=== PATIENT | male | born 2000 | race Caucasian/White ===

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

== ENCOUNTER 2020-01-23 11:30 | Outpatient (NON) | payer OTHER, SELFPAY ==
[2020-01-25 17:04] LABS: SARS-CoV-2 RNA PCR Negative
== END 2020-01-23 11:31 ==
PROVIDERS: PCP Family Medicine; Visit Provider Family Medicine
DX: J02.9 Acute pharyngitis, unspecified (principal); Z20.828 Contact with and (suspected) exposure to other viral communicable diseases
CPT/HCPCS: 87635; C9803; U0003

== ENCOUNTER → 2020-07-30 14:57 | Outpatient (CLI) | payer OTHER, SELFPAY ==
--- NOTE | ~2020-07-30 | XR_ITS ---
XR thoracic spine 3V DATE: 07/30/2020 15:42 INDICATION: Thoracic back pain TECHNIQUE: AP, lateral, swimmer views COMPARISON: None FINDINGS: No fracture or dislocation or bone destruction. The thoracic pedicles are intact. No parasp inal soft tissue thickening. IMPRESSION: Negative Reviewed, dictated and finalized at location A. IMPRESSION: Negative
--- NOTE | ~2020-07-30 | XR_ITS ---
XR lumbar spine 2-3V DATE: 07/30/2020 15:42 INDICATION: Low back pain TECHNIQUE: AP, lateral, coned lateral lumbosacral views COMPARISON: None FINDINGS: No fracture or dislocation or bone destruction. The included lower thoracic and lumbar pedi cles are intact. The lumbar and lumbosacral interspaces are well preserved. The sacroiliac joints are normal. IMPRESSION: Negative Reviewed, dictated and finalized at location A. IMPRESSION: Negative
--- NOTE | ~2020-07-30 | XR_ITS ---
EXAMINATION: XR knee LT 3V DATE: 07/30/2020 15:42 INDICATION: Left knee pain. TECHNIQUE: 3 views of left knee were obtained. COMPARISON: None. FINDINGS: Bone alignment is normal. No fracture. Joint spaces are well maintained. There is no knee j oint effusion. IMPRESSION: 1. Normal left knee. Reviewed, dictated and finalized at location A. IMPRESSION: 1. Normal left knee.
== END ==
PROVIDERS: PCP Family Medicine; Visit Provider Family Medicine
DX: M54.6 Pain in thoracic spine (principal); M54.5 Low back pain; M25.562 Pain in left knee
CPT/HCPCS: 72072; 72100; 73562

== ENCOUNTER 2023-01-27 13:51 | Emergency (ER) | payer OTHER, SELFPAY ==
--- NOTE | ~2023-01-27 | CT_ITS ---
EXAMINATION: CT abdomen pelvis w con DATE: 01/27/2023 17:34 INDICATION: Right groin pain TECHNIQUE: Computed tomography (CT) of the abdomen and pelvis was performed with 100 mL Omnipaque-350 intravenous contrast. Automated exposure control and iterative reconstruction technique were employe d. The dose-length product was 280.85 mGy-cm. COMPARISON: None FINDINGS: Lung bases are clear. Heart size is normal. No pericardial or pleural effusion. Liver, gallbladder, s pleen, pancreas, bilateral adrenal glands and kidneys are normal. Bowels including the appendix are n ormal. Bladder is normal. No evident urolithiasis in the kidneys or along the course of the lateral u reters. No free intraperitoneal gas or fluid. No pathologically enlarged abdominal or pelvic lymphade nopathy. Mild lumbar levocurvature. IMPRESSION: 1. No acute intra-abdominal/pelvic process. Normal appendix. Reviewed, dictated and finalized at location A. OMATIC INTERPRETER
[2023-01-27 14:03] VITALS: BP 132/78; PULSE 125; RESP 16; TEMP 37.1; O2SAT 100
[2023-01-27 16:05] LABS: Basophils Percent Auto 0.2 % (0.2-1.2); Eosinophils Percent Auto 0.3 % (0-4.4); Hematocrit 46.3 % (42.0-52.0); Hemoglobin 16.1 g/dL (14.0-18.0); Immature Granulocyte Absolute 0.05 K/mm3 (0.00-0.031); Immature Granulocyte Percent A 0.4 % (0-0.5); Lymphocytes Absolute Auto 0.95 K/mm3 (0.9-3.2); Lymphocytes Percent Auto 7.8 % (18.3-44.2); Mean Corpuscular HGB Conc 34.8 g/dl (32-36); Mean Corpuscular Hemoglobin 30.4 pg (26-34); Mean Corpuscular Volume 87.4 fl (80-100); Mean Platelet Volume 9.9 fl (7.4-10.4); Monocytes Absolute Auto 0.6 K/mm3 (0.1-0.6); Monocytes Percent Auto 4.7 % (2.6-8.5); Neutrophils Absolute Auto 10.6 K/mm3 (1.3-6.7); Neutrophils Percent Auto 86.6 % (45.5-73.1); Platelet Count Result 219 k/mm3 (150-375); Red Cell Distribution Width 11.9 % (11.5-14.5); White Blood Count 12.2 K/mm3 (4.5-10.0)
[2023-01-27 16:09] LABS: Appearance Urine Clear (Clear); Bacteria Urine None Seen /hpf; Bilirubin Urine Negative (Negative); Color Urine Dark Yellow (Yellow); Glucose Urine UA Negative (Negative); Ketones Urine Trace mg/dL (Negative); Leukocyte Esterase Ur Negative LEU/UL (Negative); Nitrate Urine Negative (Negative); Non Pathogenic Casts 0-2; Protein Urine Trace mg/dL (Negative); Specific Grav Ur 1.025 (1.001-1.035); Squamous Epithelial Cell Urine None seen /hpf (Few); WBC Urine 0-5 /hpf; pH Urine 6.5 (5.0-9.0)
[2023-01-27 16:11] LABS: Add Urine Microscopic? YES
[2023-01-27 16:16] LABS: Alanine Aminotransferase 16 U/L (6-50); Alkaline Phosphatase 50 U/L (38-126); Anion Gap 15 mmol/L (8-16); Aspartate Amino Transferase 22 U/L (17-59); Bilirubin,Total 3.3 mg/dL (0.2-1.3); Blood Urea Nitrogen 10 mg/dL (9-20); Calcium 9.7 mg/dL (8.4-10.2); Carbon Dioxide 20 mmol/L (22-30); Chloride 104 mmol/L (98-107); Estimated CRCL calculation 101 ml/min; Estimated Glomerular Filt Rate > 60; Glucose 112 mg/dL (65-110); Lipase 64 U/L (23-300); Potassium 3.4 mmol/L (3.4-5.0); Sodium 139 mmol/L (137-145)
[2023-01-27 16:19] VITALS: BP 135/82; PULSE 91; O2SAT 100
--- NOTE | 2023-01-27 16:47 | ECG_ITS ---
Measurements Intervals [place] Rate: 70 P: 39 CT: 123 QRS: 92 QRSD: 112 T: 71 QT: 377 QTc: 408 Interpretive Statements SINUS RHYTHM WITH SINUS ARRHYTHMIA RIGHT AXIS DEVIATION INTRAVENTRICULAR CONDUCTION DELAY BORDERLINE ECG NO PREVIOUS ECG AVAILABLE FOR COMPARISON Electronically Signed On 01-27-2023 19:59:34 AUTOMATIC CHIEF by Waldemar Block D.O.
[2023-01-27] MEDS: ONDANSETRON INJ 4 MG/2 ML VIAL IV PUSH (17:02)
[2023-01-27] MEDS: SODIUM CHLORIDE 0.9% IV 1,000 ML 999 ML IV CONT ×2 (17:02)
[2023-01-27 17:09] LABS: INR 1.1; Prothrombin Time 14.4 Seconds (11.1-14.7)
[2023-01-27 17:10] LABS: Partial Thromboplastin Time 28.7 SECONDS (22.3-36.8)
[2023-01-27 17:13] LABS: D Dimer < 0.27 ug/mL (<0.48)
--- NOTE | 2023-01-27 17:13 | ED.GENADULT ---
HPI - General Adult General Chief complaint: Nausea/Vomiting/Diarrhea Stated complaint: near syncopal, nausea, groin pain Time Seen by Provider: 01/27/23 16:13 Source: patient and RN notes reviewed Mode of arrival: ambulatory Limitations: no limitations History of Present Illness HPI narrative: This is a 22 year old male who presents for evaluation of weakness. He states he was at home when he developed sudden onset of weakness all over at noon. He also reports he feels lightheaded, numb all over with nausea. He also reports shortness of breath but denies chest pain. He reports vaping and marijuana use. Related Data Allergies Allergy/AdvReac Type Severity Reaction Status Date / Time No Known Allergies Allergy Verified 01/27/23 15:55 Review of Systems Constitutional: Constitutional: Reports fatigue and Reports weakness Cardiovascular: Cardiovascular: Denies syncope, Denies rapid heart rate, Denies irregular heart rhythm, Denies leg edema and Reports dyspnea Respiratory: Respiratory: Denies chest congestion, Denies hemoptysis, Denies excessive phlegm production and Denies dyspnea Gastrointestinal: Gastrointestinal: Reports abdominal pain, Denies hematochezia, Denies diarrhea, Reports nausea and Denies vomiting Genitourinary: Genitourinary: Denies hematuria, Denies dysuria, Denies penile discharge and Denies testicular pain Musculoskeletal: Musculoskeletal: Denies joint swelling, Denies loss of height and Denies muscle weakness Neurologic: Denies syncope, Denies focal weakness and Denies weakness PMFSH Past Medical History Medical History Acute bilateral low back pain without sciatica Acute non-recurrent maxillary sinusitis Acute pain of left knee Acute thoracic back pain Anxiety Chronic anxiety Chronic depression COVID-19 (06/18/21) positive home COVID test 06/20/2021. Exposure to COVID-19 virus Infected dental caries Insomnia Nocturnal enuresis Pharyngitis Rash Smoking Weight loss Weight loss, non-intentional Surgical History Surgical History History of circumcision Family History Family History Grandparent Diabetes mellitus Grandparent Diabetes mellitus Social History Social History Smoking status: Current every day smoker Tobacco type: e-cigarettes/vaping Second hand tobacco smoke exposure: No Alcohol intake: never Substance use: current Substance use type: marijuana Lack of Transportation: No Lack of Food: Never True Current Housing: I Have Housing Concerned About Future Housing: No Difficulty Paying Gas/Electric Bills: No Difficulty Paying for Meds: No Currently Unemployed: No Education: Trade/Vocational Certificate Difficulty w/ Childcare or Family Care: No Living arrangements: with family Occupation/Education: occupation Gender identity (if verbalized by the patient): Male Exam Const: General: no acute distress and alert Nutritional Appearance: well nourished Orientation/consciousness: patient oriented x3 Limitations: no limitations HENMT: Head: normal to inspection Eyes: EOM: EOMs intact bilaterally Neck: Neck: normal visual inspection Chest: Chest palpation & inspection: normal inspection of the chest Resp: Effort & Inspection: normal respiratory effort Auscultation: clear to auscultation bilaterally Cardio: Rate: regular rate Rhythm: regular rhythm Heart sounds: no murmurs GI: GI Palp: Yes Soft to palpation, No Tenderness to palpation present (GI), No Guarding due to palpation present (GI) and No Rigid due to palpation Auscultation: normal bowel sounds Skin: General skin exam: normal color Rashes: no rashes Wounds: no wounds Neuro: General: patient oriented x3, moves all extremities and CN's II-XI intact bilatera
[2023-01-27 17:28] LABS: Amphetamine Screen Urine Negative (Negative); Barbiturate Screen Urine Negative (Negative); Benzodiazepines Screen Urine Negative (Negative); Cannabinoid Screen Urine Positive (Negative); Cocaine Screen Urine Negative (Negative); Methadone Screen Urine Negative (Negative); Opiate Screen Urine Negative (Negative); Phencyclidine Screen Urine Negative (Negative)
[2023-01-27 17:52] LABS: Influenza A QL RT-PCR Negative (Negative); Influenza B QL RT-PCR Negative (Negative); SARS-CoV-2 RNA PCR Negative (Negative)
[2023-01-27 18:27] VITALS: BP 135/80; PULSE 65
[2023-01-27 18:28] VITALS: BP 131/83; PULSE 62
[2023-01-27 18:29] VITALS: BP 138/79; PULSE 64
[2023-01-27 18:57] VITALS: BP 140/77; PULSE 62; RESP 14; O2SAT 100
== END 2023-01-27 19:21 | disposition home or self-care (01) ==
PROVIDERS: Emergency Medicine; Emergency Provider General Practice; PCP Family Medicine
DX: R42 Dizziness and giddiness (principal); E86.0 Dehydration; R31.9 Hematuria, unspecified; R11.0 Nausea; R06.02 Shortness of breath; F17.290 Nicotine dependence, other tobacco product, uncomplicated; Z20.822 Contact with and (suspected) exposure to COVID-19; Z79.899 Other long term (current) drug therapy
CPT/HCPCS: 36415; 74177; 80053; 80307; 81001; 83690; 85025; 85380; 85610; 85730; 87636; 93005; 96361; 96374; 99284; J2405; J7030; Q9967

== ENCOUNTER 2023-03-16 12:53 | Outpatient (CLI) | payer OTHER, SELFPAY ==
--- NOTE | ~2023-03-16 | US_ITS ---
EXAMINATION: US soft tissue head and neck DATE: 03/16/2023 13:10 INDICATION: Localized swelling, mass and lump, neck. TECHNIQUE: Multiple grayscale and Doppler ultrasound images of the head and neck were obtained. COMPARISON: None FINDINGS: There is a normal lymph node in the left submandibular region in the patient's area of conc aaron. IMPRESSION: 1. Normal lymph node in the left submandibular region in the patient's area of concern. Reviewed, dictated and finalized at location E. PROGRAMMER
== END 2023-03-16 12:54 ==
LOC: MICIMG 12:54
PROVIDERS: PCP Nurse Practitioner Family; Visit Provider Nurse Practitioner Family
DX: R22.1 Localized swelling, mass and lump, neck (principal)
CPT/HCPCS: 76536

== ENCOUNTER 2024-03-13 15:16 | Outpatient (CLI) | payer OTHER, SELFPAY ==
--- NOTE | 2024-03-13 15:22 | ECG_ITS ---
Test Date: 2024-03-13 16:06:03 Measurements Intervals [place] Rate: 109 P: 72 VA: 144 QRS: 102 QRSD: 110 T: 58 QT: 333 QTc: 450 Interpretive Statements SINUS TACHYCARDIA POSSIBLE LEFT ATRIAL ENLARGEMENT [-0.1mV P-WAVE IN V1/V2] RIGHT AXIS DEVIATION [QRS AXIS > 100] No previous ECG available for comparison Electronically Signed On 03-14-2024 14:15:04 RECREATIONAL DIRECTOR by Fredo Hood M.D.
[2024-03-13 15:44] LABS: Basophils Percent Auto 0.2 % (0.2-1.2); Eosinophils Absolute Auto 0.2 K/mm3 (0-0.3); Eosinophils Percent Auto 1.8 % (0-4.4); Hematocrit 47.8 % (42.0-52.0); Hemoglobin 16.7 g/dL (14.0-18.0); Immature Granulocyte Absolute 0.02 K/mm3 (0.00-0.031); Immature Granulocyte Percent A 0.2 % (0-0.5); Lymphocytes Absolute Auto 0.89 K/mm3 (0.9-3.2); Lymphocytes Percent Auto 10.5 % (18.3-44.2); Mean Corpuscular HGB Conc 34.9 g/dl (32-36); Mean Corpuscular Hemoglobin 30.1 pg (26-34); Mean Corpuscular Volume 86.3 fl (80-100); Mean Platelet Volume 9.3 fl (7.4-10.4); Monocytes Absolute Auto 0.6 K/mm3 (0.1-0.6); Monocytes Percent Auto 6.5 % (2.6-8.5); Neutrophils Absolute Auto 6.8 K/mm3 (1.3-6.7); Neutrophils Percent Auto 80.8 % (45.5-73.1); Platelet Count Result 205 k/mm3 (150-375); Red Blood Count 5.54 M/mm3 (4.6-6.20); Red Cell Distribution Width 11.9 % (11.5-14.5); White Blood Count 8.4 K/mm3 (4.5-10.0)
[2024-03-13 15:52] LABS: Add Urine Microscopic? YES; Appearance Urine Clear (Clear); Bacteria Urine None Seen /hpf; Bilirubin Urine Negative (Negative); Blood Urine Trace (Negative); Color Urine Yellow (Yellow); Glucose Urine UA Negative (Negative); Ketones Urine 3+ mg/dL (Negative); Leukocyte Esterase Ur Negative LEU/UL (Negative); Nitrate Urine Negative (Negative); Non Pathogenic Casts 0-2; Protein Urine Negative (Negative); RBC Urine 0-2 /hpf (0-2); Specific Grav Ur 1.011 (1.001-1.035); Squamous Epithelial Cell Urine None Seen /hpf (Few); Urobilinogen Urine 0.2 mg/dL (<2.0); WBC Urine 0-5 /hpf (0-3); pH Urine 5.5 (5.0-9.0)
[2024-03-13 15:55] LABS: Alanine Aminotransferase 23 U/L (6-50); Albumin Level 5.2 g/dL (3.5-5.1); Alkaline Phosphatase 53 U/L (38-126); Amylase 69 U/L (30-110); Anion Gap 14 mmol/L (4-12); Aspartate Amino Transferase 23 U/L (17-59); Bilirubin,Total 5.3 mg/dL (0.2-1.3); Blood Urea Nitrogen 11 mg/dL (9-20); Calcium 9.8 mg/dL (8.4-10.2); Carbon Dioxide 24 mmol/L (22-30); Chloride 101 mmol/L (98-107); Estimated Glomerular Filt Rate > 60; Glucose 95 mg/dL (65-110); Lipase 54 U/L (23-300); Magnesium 1.9 mg/dL (1.6-2.3); Potassium 4.1 mmol/L (3.4-5.0); Sodium 139 mmol/L (137-145)
[2024-03-13 16:30] LABS: Thyroid Stimulating Hormone 0.582 uIU/mL (0.465-4.680); Total Triiodothyronine (T3) 1.11 NG/ML (0.97-1.69)
[2024-03-13 17:01] LABS: Free T4 Free Thyroxine 1.42 ng/dL (0.78-2.19)
[2024-03-13 18:57] LABS: Hemoglobin A1C 5.3 % (<5.7)
[2024-03-14 16:35] LABS: Bilirubin Indirect 4.5 mg/dL (0-1.1)
[2024-03-16 08:14] LABS: Protein, Total 8.2 g/dL (6.1-8.1)
== END 2024-03-13 15:17 | disposition home or self-care (01) ==
LOC: ANHLAB 15:22
PROVIDERS: PCP Nurse Practitioner Family; Visit Provider Family Medicine
DX: R94.31 Abnormal electrocardiogram [ECG] [EKG] (principal); R77.8 Other specified abnormalities of plasma proteins; R00.0 Tachycardia, unspecified
CPT/HCPCS: 36415; 80053; 81001; 82150; 82248; 82384; 83036; 83690; 83735; 84155; 84165; 84439; 84443; 84480; 85025; 93005

== ENCOUNTER 2024-07-08 16:40 | Emergency (ER) | payer OTHER, SELFPAY ==
--- NOTE | ~2024-07-08 | CT_ITS ---
CT abdomen pelvis wo con Ordering provider: Harman Rebolledo History: 24 years Male with . Flank pain hematuria . Comparison: None. Technique: CT abdomen and pelvis without IV and without oral contrast. Automated exposure control and iterative reconstruction technique were employed. The dose-length product was 194.05 mGy-cm. Findings: VISUALIZED LOWER CHEST: Normal. UPPER ABDOMINAL ORGANS: Liver: Normal. Gallbladder: Normal. Spleen: Normal. Stomach/duodenum: Normal. Pancreas: Normal. Adrenals: Normal. Kidneys: Normal. PELVIC ORGANS: The bladder shows thickened wall suggestive of cystitis.. BOWEL AND MESENTERY: Colon: No evidence of diverticulitis.. Normal appendix. Small Bowel: Normal. No obstruction. Peritoneum/mesentery: No free air or free fluid. No mesenteric lymphadenopathy. RETROPERITONEUM: Normal aorta. No retroperitoneal lymphadenopathy. MUSCULOSKELETAL: Superficial soft tissues: The superficial soft tissues are normal. Bones: Normal spine. IMPRESSION: 1. No evidence of appendicitis, diverticulitis or intestinal obstruction. No renal stones. 2. Thickened wall of the urinary bladder which is suggestive of cystitis. Further evaluation advised . Reviewed, dictated and finalized at location A. IMPRESSION: 1. No evidence of appendicitis, diverticulitis or intestinal obstruction. No r enal stones. 2. Thickened wall of the urinary bladder which is suggestive of cystitis. Furt her evaluation advised.
--- OUTSIDE RECORDS SUMMARY | 2024-07-08 16:42 | XMS_ITS | Clinical Summary ---
Author Organization [facility] [employer] Address [address] [place] [address] Care Team Providers Care Treatment Plant Operator Name Role Phone Unavailable Primary Care Provider Unavailabl e Source Comments [facility] [employer],non-owned Affiliates and Associated Physician Practices is amultiple site organization consisting of ambulatory clinics and hospital sitesin [place], [place], [place] and [place]. This disclosure is being madepursuant to the Care Everywhere program and may not contain all information available regarding this patient. Last updated 17.[facility] [employer] Allergies No known active allergies Medications * Be aware that medications may not be up to date on this document. Alwaysverify current medications with the patient. No known medications Active Problems Problem Noted Date Diagnosed Date Suicidal ideations 08/17/2017 Overview (10/27/2017): Admitted to [facility] for suicidal ideations with a plan. BMI (body mass index), pediatric, 95-99% for age 1012/05/2014 Encounters Date Type Department Care Team Description 04/26/2024 12:45 PM SHANKER OUT Office Visit [facility] - Endocrinology [id number] [place] [id number] Malik Carballo MD High catecholamines (Primary Dx) from Last 3 Months Immunizations Immunization Administration Dates Next Due DTaP VACCINE IM (6wk-6yrs) 08/05/2005,,2000, 1,2000 HEP A PEDS 2 DOSE 07/19/2011 HEP B VACCINE, PED/ADOL 06/21/2001,2000, HIB BOOSTER 11/01/2001, 2,2000, 1 MENINGOCOCCAL ACWY (MCV4P) VAC IM 12/03/2014 MMR 08/05/2005,03/29/2001 PNEUMOCOCCAL CONJ, PEDS 03/29/2001,10/05,2000, 1 POLIO IPV 08/05/2005, 2,2000, 1 PPD 08/05/2005 TDAP (7yrs+) 06/29/2011 VARICELLA 07/19/2011,11/21/2001 Family History Medical History Relation Name Comments Diabetes Maternal Grandmother Relation Name Status Comments Maternal Grandmother Social History Tobacco Use Types Packs/Day Years Used Date Smoking Tobacco: Every Day Cigarettes Smokeless Tobacco: Never Comments:wants to quit. Alcohol Use Standard Drinks/Week Comments Not Asked 0 (1 standard drink = 0.6 oz pur e alcohol) Sex and Gender Information Value Date Recorded Sex Assigned at Not on file Legal Sex Male 6:53 AM SHANKER OUT Gender Identity Not on file Sexual Orientation Not on file Last Filed Vital Signs Vital Sign Reading Time Taken Comments Blood Pressure 128/80 04/26/2024 12:44 PM SHANKER OUT Pulse 102 04/26/2024 12:44 PM SHANKER OUT Temperature 36.6 C (97.8 F) 10/23/2015 1:13 PM CDT Respiratory Rate - - Oxygen Saturation 99% 04/26/2024 12:44 PM SHANKER OUT Inhaled Oxygen Concentration - - Weight 65.3 kg (144 lb) 04/26/2024 12:44 PM SHANKER OUT Height 175.3 cm (5' 9 ) 04/26/2024 12:44 PM SHANKER OUT Body Mass Index 21.27 04/26/2024 12:44 PM SHANKER OUT Plan of Treatment Health Maintenance Due Date Last Done Comments PNEUMOCOCCAL VACCINE (1 of 1 - PPSV23) 2006 03/29/2001, 2000, 2000, Additional history exists HIV SCREENING 2015 HPV VACCINE (1 - Male 3-dose series) 2015 HEPATITIS C SCREENING 03/24/2018 DTAP/TDAP/TD VACCINES (7 - Td or Tdap) 06/28/2021 06/29/2011, 08/05/2005, 06/21/2001, Additional history exists COVID-19 VACCINE ( season) 2023 DEPRESSION SCREENING 02/29/2024 INFLUENZA VACCINE (Season Ended) 2024 ZOSTER VACCINE (1 of 2) 2050 HEPATITIS B VACCINE Completed 06/21/2001, 2000, 2000 HIB VACCINE Completed 11/01/2001, 05/30, 2000, Additional history exists MENINGOCOCCAL GROUPS A/C/Y/W VACCINE Aged Out 12/03/2014 No longer eligible based on patient's age to complete this topic MENINGOCOCCAL (Group B) VACCINE SHARED DECISION-MAKING Aged Out No longer eligible based on patient's age to complete this topic Goals Goal Patient Goal Type Associated Problems Recent Progress Patient-Stated? Author Exercise 3X per week (30 min per time) Exercise No Zaira Ruiz MD Note: Caring for Your Overweight Child Get Moving: It is recommended that children and teens get physical activity for at least 1 hour per day on most (or better yet, all) days of the week. That may sound like a lot, especially if your child is not getting any physical activity now. But physical activity means more than exercise. It can mean playing games in the backyard, or washing the car. It can mean picking up leaves, or walking the dog. Add the healthy habit of physical activity to your family s schedule. When children take off weight through dieting alone, 80 percent of the loss is from fatty tissue and 20 percent is from muscle. Adding weight-resistance training to an exercise routine preserves the muscle tissue. Virtually every ounce dropped comes from fat. Once an adolescent meets his goal, regular exercise is essential for maintaining the desired weight. Where can I go for more information? [place] [employer] ( ) www.aap.org HealthyChildren.org www.healthychildren.org U.S. Department of Health and Human Services www.hhs.gov Website and free downloadable galileo for smartphones: http://www.Alloka/ Use safety retraint in car Lifestyle On track( 016 11:21 AM SHANKER OUT) No Jackson, Samantha, SAMANTHA Insurance * Guarantor: SCOTTY LICEA Account Type Relation to Patient Date of Phone Billing Address Personal/Family [address] [place] [address]
--- OUTSIDE RECORDS SUMMARY | 2024-07-08 16:42 | XMS_ITS | Clinical Summary ---
Author Organization [address] [address] Care Team Providers Care Mechanical Repair Worker Name Role Phone Matt Ramirez MD Primary Care Provider [phone] Allergies No known active allergies Medications No known medications Active Problems No known active problems Encounters Date Type Department Care Team Description 07/08/2024 4:15 PM CDT Office Visit [facility] at [address] [address] Shakira Cash NP Bilateral flank pain (Primary Dx) from Last 3 Months Social History Tobacco Use Types Packs/Day Years Used Date Smoking Tobacco: Never Assessed Sex and Gender Information Value Date Recorded Sex Assigned at Not on file Legal Sex Male 4:07 AM DIRECTOR AND PROFESSOR Gender Identity Not on file Sexual Orientation Not on file Obstetrics History Last Filed Vital Signs Vital Sign Reading Time Taken Comments Blood Pressure 145/90 07/08/2024 4:06 PM CDT Pulse 120 07/08/2024 4:06 PM CDT Temperature 37.2 C (98.9 F) 07/08/2024 4:06 PM CDT Respiratory Rate 20 07/08/2024 4:06 PM CDT Oxygen Saturation 99% 07/08/2024 4:06 PM CDT Inhaled Oxygen Concentration - - Weight 69.2 kg (152 lb 8 oz) 07/08/2024 4:06 PM CDT Height - - Body Mass Index - - Plan of Treatment Health Maintenance Due Date Last Done Comments Depression Screening 2000 Hepatitis C Screening 2000 HPV Vaccines (1 - Male 3-dose series) 2015 Regular Well Visit/Exam 18-64 2018 DTaP/Tdap/Td Vaccine (7 - Td or Tdap) 06/28/2021 06/29/2011, 08/05/2005, 06/21/2001, Additional history exists Influenza Vaccine (Season Ended) 2024 Hepatitis B Screening Completed 06/21/2001 , 2000, 2000 Varicella Vaccines Completed 07/19/2011, 11/21/2001 Pneumococcal vaccine <65 Aged Out No longer eligible based on patient's age to complete this topic Procedures Procedure Name Priority Date/Time Associated Diagnosis Comments POCT URINALYSIS DIPSTICK Routine 07/08/2024 4:16 PM CDT Bilateral flank pain from Last 3 Months Results * (ABNORMAL) POCT urinalysis dipstick (07/08/2024 4:16 PM CDT) Color, Urine, POC Light Yellow Clarity, ur, POC Clear Clear Glucose, ur, POC Negative Negative Bilirubin, ur, POC Negative Negative Ketones, ur, POC Negative Negative Specific [place], POC 1.005 1.003 - 1.030 Blood, ur, POC Trace(A) Negative pH, ur, POC 6.0 5.0 - 8.0 Protein, ur, POC Negative Negative Urobilinogen, urine, POC 0.2 0.2 - 1.0 mg/dL Nitrite, ur, POC Negative Negative Leukocytes, ur, POC Negative Negative Lot Number [id number] Urine 07/08/2024 4:16 PM CDT Shakira Cash NP POINT OF CARE TEST ORDERABLES Final Result from Last 3 Months Insurance Member Subscriber Plan / Payer (Ef fective 2022-Present) Name:Scotty Barr Member ID:[id number] Relation to Subscriber:Child Name:YISEL BARR Subscriber ID:[id number] Date of :1974 Address: [address] [place] [address] Payer ID:[id number] (NAIC) Type:AETNA HMO/PPO Address: [facility] [id number] [phone] Care Teams Mechanical Repair Worker Relationship Specialty Start Date End Date Matt Ramirez MD [address] [id number] PCP - General Family Medicine 07/08/24
--- OUTSIDE RECORDS SUMMARY | 2024-07-08 16:43 | XMS_ITS | Encounter Summary ---
Author Organization [facility] Healthcare Address [address] [place] [address] Care Team Providers Care Director Of Epidemiology Name Role Phone Matt Ramirez MD Primary Care Provider [phone] Reason for Visit * Reason Comments Back Pain Started less than a week again. IBU for discomfort. No hx of kidney issues. 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 Subjective/Objective Patient ID: Scotty Licea is a 24 y.o. male. Chief Complaint Back Pain (Started less than a week again. IBU for discomfort. No hx of kidney issues. ) Patient presents to the clinic with reports of bilateral flank pain that started 5 days ago. Patient denies fevers, abdominal pain, vomiting, concern for STI, swelling or pain to his penis or testicles, drainage from his penis, and the inability to urinate. He has taken Tylenol and ibuprofen for his symptoms. Reports a family history of kidney stones. Review of Systems Constitutional: Negative for chills and fever. Respiratory: Negative. Cardiovascular: Negative. Gastrointestinal: Negative for abdominal pain, nausea and vomiting. Genitourinary: Negative for decreased urine volume, difficulty urinating, dysuria, flank pain, frequency, genital sores, hematuria, penile discharge, penile pain, penile swelling, scrotal swelling, testicular pain and urgency. Musculoskeletal: Positive for back pain. Negative for gait problem. Neurological: Negative for headaches. Physical Exam Vitals reviewed. Constitutional: General: He is not in acute distress. Appearance: Normal appearance. He is not ill-appearing. Cardiovascular: Rate and Rhythm: Normal rate and regular rhythm. Pulmonary: Effort: Pulmonary effort is normal. Breath sounds: Normal breath sounds. Abdominal: General: Bowel sounds are normal. There is no distension. Palpations: Abdomen is soft. Tenderness: There is no abdominal tenderness. There is right CVA tenderness and left CVA tenderness. Skin: General: Skin is warm. Neurological: Mental Status: He is alert and oriented to person, place, and time. Vitals: 07/08/24 1606 BP: 145/90 Pulse: 120 Resp: 20 Temp: 37.2 ??C (98.9 ??F) TempSrc: Oral SpO2: 99% Weight: 69.2 kg (152 lb 8 oz) Assessment/Plan --Patient is in 12/07 bilateral flank pain with hematuria, will send patient to the ER for further workup of possible kidney stone and for pain management. Discussed with patient that the convenient Care is unable to order the test that would be needed to diagnose kidney stone. Patient verbalized understanding in his with his mother who will drive him to the ER. Diagnoses and all orders for this visit: Bilateral flank pain (Primary) - Urine culture Urine, clean voided; Future - POCT urinalysis dipstick Recent Results (from the past 4 hours) POCT urinalysis dipstick Collection Time: 07/08/24 4:16 PM Result Value Ref Range Color, Urine, POC Light Yellow Clarity, ur, POC Clear Clear Glucose, ur, POC Negative Negative Bilirubin, ur, POC Negative Negative Ketones, ur, POC Negative Negative Specific Polk, POC 1.005 1.003 - 1.030 Blood, ur, POC Trace (A) Negative pH, ur, POC 6.0 5.0 - 8.0 Protein, ur, POC Negative Negative Urobilinogen, urine, POC 0.2 0.2 - 1.0 mg/dL Nitrite, ur, POC Negative Negative Leukocytes, ur, POC Negative Negative Lot Number [id number] Patient Education: --GO TO ER Disposition Treatment plan including expectations, follow up, and return precautions discussed with patient/parent, verbalizes understanding. Medication dosage, use, and potential adverse reactions discussed with patient/parent. Advised to follow up with PCP if symptoms do not resolve as expected or sooner if condition worsens. Signs/symptoms warranting ER evaluation reviewed. Patient and/or guardian was given an opportunity to ask questions, questions answered. Shakira Cash NP 07/08/24 4:24 PM This office note has been partially dictated using Jiglu software, and as a result portions of the record may have been created with this software. Occasional wrong-word or '[id number]' substitutions may have occurred due to the inherent limitations of voice recognition software. Read the chartcarefully and recognize, using context, where substitutions have occurred. documented in this encounter Plan of Treatment Scheduled Orders Name Type Priority Associated Diagnoses Orde r Schedule Urine culture Urine, clean voided Microbiology Routine Bilateral flank pain Expected: 07/08/2024, Expires: 07/08/2025 documented as of this encounter Procedures Procedure Name Priority Date/Time Associated Diagnosis Comments POCT URINALYSIS DIPSTICK Routine 07/08/2024 4:16 PM CDT Bilateral flank pain documented in this encounter Results * (ABNORMAL) POCT urinalysis dipstick (07/08/2024 4:16 PM CDT) Color, Urine, POC Light Yellow Clarity, ur, POC Clear Clear Glucose, ur, POC Negative Negative Bilirubin, ur, POC Negative Negative Ketones, ur, POC Negative Negative Specific Polk, POC 1.005 1.003 - 1.030 Blood, ur, POC Trace(A) Negative pH, ur, POC 6.0 5.0 - 8.0 Protein, ur, POC Negative Negative Urobilinogen, urine, POC 0.2 0.2 - 1.0 mg/dL Nitrite, ur, POC Negative Negative Leukocytes, ur, POC Negative Negative Lot Number [id number] Urine 07/08/2024 4:16 PM CDT Shakira Cash DITCHER OPERATOR POINT OF CARE TEST ORDERABLES Final Result documented in this encounter Visit Diagnoses Diagnosis Bilateral flank pain- Primary Abdominal pain, unspecified site documented in this encounter Care Teams Director Of Epidemiology Relationship Specialty Start Date End Date Matt Ramirez MD [address] [address] PCP - General Family Medicine 07/08/24 documented as of this encounter
--- OUTSIDE RECORDS SUMMARY | 2024-07-08 16:43 | XMS_ITS | Referral Summary ---
Author Organization [address] [address] Care Team Providers Care Ceiling Installer Name Role Phone Matt Ramirez MD Primary Care Provider [phone] Encounters Date Type Department Care Team Description 07/08/2024 4:15 PM CDT Office Visit [facility] Medical [facility] Care at [address] [address] Shakira Cash NP Bilateral flank pain (Primary Dx) from Last 3 Months Allergies No known active allergies Medications No known medications Active Problems No known active problems Social History Tobacco Use Types Packs/Day Years Used Date Smoking Tobacco: Never Assessed Sex and Gender Information Value Date Recorded Sex Assigned at Not on file 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 Gender Identity Not on file Sexual Orientation [...] Mass Index - - Plan of Treatment Not on file Procedures Procedure Name Priority Date/Time Associated Diagnosis Comments POCT URINALYSIS DIPSTICK Routine 07/08/2024 4:16 PM CDT Bilateral flank pain from Last 3 Months Results * (ABNORMAL) POCT urinalysis dipstick (07/08/2024 4:16 PM CDT) Color, Urine, POC Light Yellow Clarity, ur, POC Clear Clear Glucose, ur, POC Negative Negative Bilirubin, ur, POC Negative Negative Ketones, ur, POC Negative Negative Specific Sheridan, POC 1.005 1.003 - 1.030 Blood, ur, POC Trace(A) Negative pH, ur, POC 6.0 5.0 - 8.0 Protein, ur, POC Negative Negative Urobilinogen, urine, POC 0.2 0.2 - 1.0 mg/dL Nitrite, ur, POC Negative Negative Leukocytes, ur, POC Negative Negative Lot Number [id number] Urine 07/08/2024 4:16 PM CDT Shakira Cash MEMBERSHIP CORRESPONDENT POINT OF CARE TEST ORDERABLES Final Result from Last 3 Months Insurance CMR Member Subscriber Plan / Payer (Ef fective 2022-Present) Name:Scotty Licea Member ID:[id number] Relation to Subscriber:Child Name:MOMOYISEL Subscriber ID:[id number] Date of :1974 Address: [address] [place] [address] Payer ID:[id number] (NAIC) Type:AETNA HMO/PPO Address: [facility] [id number] [place] [id number] Care Teams Ceiling Installer Relationship Specialty Start Date End Date Matt Ramirez MD [address] [address] PCP - General Family Medicine 07/08/24
[2024-07-08 16:50] VITALS: BP 155/86; PULSE 116; RESP 18; TEMP 36.4; O2SAT 100
--- NOTE | 2024-07-08 16:55 | ED_ITS ---
HPI - General Adult General Chief complaint: Urogenital-Male <Harman Rebolledo MD - Last Filed: 07/09/24 12:51> Stated complaint: Blood in urine-poss kidney stone <Harman Rebolledo MD - Last Filed: 07/09/24 12:51> Time Seen by Provider: 07/08/24 16:46 <Harman Rebolledo MD - Last Filed: 07/09/24 12:51> History of Present Illness HPI narrative: 24-year-old male presented to the emergency department for evaluation for left flank pain. Patient states symptoms have been going on for the last 4-5 days. Patient has no prior history of kidney stones. Patient did present to [facility] outpatient care and did have a urinalysis performed that showed no evidence of infection but did have hematuria. Patient was referred to the emergency department for further evaluation. Patient denies any significant past medical history. <Harman Rebolledo MD - Last Filed: 07/09/24 12:51> Related Data Allergies/adverse reactions: Allergies Allergy/AdvReac Type Severity Reaction Status Date / Time No Known Allergies Allergy Verified 07/08/24 16:40 <Harman Rebolledo MD - Last Filed: 07/09/24 12:51> Review of Systems 2 Review of Systems: All systems reviewed & are unremarkable except as noted in HPI and below <Harman Rebolledo MD - Last Filed: 07/09/24 12:51> FOR[facility]LY [facility], [facility] Past Medical History Medical History: Medical History (Updated 07/09/24 @ 00:00 by Background Daemon) High catecholamines (03/13/24) elevated epinephrine of 224 with normal less than 82 on 03/13/2023. Serum total bilirubin elevated bilirubin 5.3 03/13/2024. Microscopic hematuria trace amount of blood on urinalysis 03/13/2024. Elevated total protein (03/13/24) total protein slightly elevated at 9.0 on 03/13/2024. BMI 20.0-20.9, adult Early satiety Testicular pain Tachycardia EKG 03/13/2024 with sinus tachycardia with rate of 105 with possible left atrial enlargement. Nausea Amylase 69, lipase 54 on 03/13/2024. Panic attacks SOB (shortness of breath) Localized swelling, mass and lump, neck Rash Infected dental caries Insomnia Acute non-recurrent maxillary sinusitis COVID-19 (06/18/21) positive home COVID test 06/20/2021. Acute pain of left knee Acute thoracic back pain Acute bilateral low back pain without sciatica Nocturnal enuresis Exposure to COVID-19 virus Pharyngitis Weight loss, non-intentional Chronic depression Chronic anxiety TSH 0.582, free T4 1.42, T3 total 1.11 on 03/13/2024. Smoking Anxiety Weight loss <Harman Rebolledo MD - Last Filed: 07/09/24 12:51> Surgical History Surgical History: Surgical History History of circumcision <Harman Rebolledo MD - Last Filed: 07/09/24 12:51> Family History Family History: Family History Grandparent Diabetes mellitus Grandparent Diabetes mellitus <Harman Rebolledo MD - Last Filed: 07/09/24 12:51> Social History Social History: Social History Smoking status: Current every day smoker Tobacco type: e-cigarettes/vaping Second hand tobacco smoke exposure: No Alcohol intake: never Substance use: current Substance use type: marijuana Lack of Transportation: No Lack of Food: Never True Current Housing: I Have Housing Concerned About Future Housing: No Difficulty Paying Gas/Electric Bills: No Difficulty Paying for Meds: No Currently Unemployed: No Education: Trade/Vocational Certificate Difficulty w/ Childcare or Family Care: No Living arrangements: with family Occupation/Education: occupation Gender identity (if verbalized by the patient): Male <Harman Rebolledo MD - Last Filed: 07/09/24 12:51> Exam 2 Narrative: APPEARANCE: Well appearing, no pain, no distress, well-nourished. HEAD: normocephalic, atraumatic. EYES: PERRLA/EOMI, conjunctivae clear. NOSE: Normal no drainage EARS:TMS clear with good light reflex. THROAT: Pharynx clear, no exudate. NECK: Supple. No adenopathy, no masses. RESPIRATORY: Airway patent, respirations nonlabored. Clear to auscultation bilaterally, no rales, rhonchi, wheezing. CARDIOVASCULAR: Regular rate and rhythm without murmurs rubs or gallops. ABDOMINAL: Suprapubic tenderness to palpation along with left CVA tenderness MUSCULOSKELETAL: Moves all extremities. Strength/ROM intact, No edema, No calf tenderness. NEURO: Alert. Cranial nerves II through XII intact. Good gait. Good coordination SKIN: Warm, dry. Normal Color <Harman Rebolledo MD - Last Filed: 07/09/24 12:51> Course Course Emergency Course: 1939: Patient signed out pending CT read. CT read did not show any acute findings. No evidence of kidney stones. Vital signs within normal limits except for a mildly elevated T bili which is chronic for this patient. No pain in the right side. Urine without hematuria or evidence of infection. Patient states that the pain is worse after has a long video games session. It is positional and improves when he sits in certain ways. Presentation most consistent with MSK pain. Patient was re-evaluated is resting comfortably in bed. Results were discussed with him and his mother and they are comfortable going home. They will follow up with primary care physician. Discharged on NSAIDs and muscle relaxers. <Wesley Higuera MD - Last Filed: 07/08/24 19:44> Vital Signs Vital signs: Vital Signs Temperature 97.6 F 07/08/24 16:50 Pulse Rate 116 H 07/08/24 16:50 Respiratory Rate 18 07/08/24 16:50 Blood Pressure 155/86 H 07/08/24 16:50 Pulse Oximetry 100 07/08/24 16:50 Oxygen Delivery Room Air 07/08/24 16:50 Temperature 98.1 F 07/08/24 20:15 Pulse Rate 93 07/08/24 20:15 Respiratory Rate 15 07/08/24 20:15 Blood Pressure 143/87 H 07/08/24 20:15 Pulse Oximetry 99 07/08/24 20:15 Oxygen Delivery Room Air 07/08/24 16:50 <Harman Rebolledo MD - Last Filed: 07/09/24 12:51> Vital Signs Temperature 97.6 F 07/08/24 16:50 Pulse Rate 116 H 07/08/24 16:50 Respiratory Rate 18 07/08/24 16:50 Blood Pressure 155/86 H 07/08/24 16:50 Pulse Oximetry 100 07/08/24 16:50 Oxygen Delivery Room Air 07/08/24 16:50 Temperature 98.1 F 07/08/24 20:15 Pulse Rate 93 07/08/24 20:15 Respiratory Rate 15 07/08/24 20:15 Blood Pressure 143/87 H 07/08/24 20:15 Pulse Oximetry 99 07/08/24 20:15 Oxygen Delivery Room Air 07/08/24 16:50 <Wesley Higuera MD - Last Filed: 07/08/24 19:44> Medical Decision Making MDM Narrative Medical decision making narrative: 24-year-old male presents emergency department for evaluation for left- sided flank pain. Patient did have some blood in his urine as outpatient but no blood or signs of infection in his urine today. CT scan showed no evidence of kidney stone patient's labs were similar to his baseline. Patient did have a mild elevation is T bili been no right upper quadrant tenderness to palpation. Patient's T bili is chronically elevated. At time of sign-out CT scan was pending. <Harman Rebolledo MD - Last Filed: 07/09/24 12:51> Differential Diagnosis Differential Diagnosis: Kidney stone, urinary tract infection, musculoskeletal injury, cholelithiasis, cholecystitis <Harman Rebolledo MD - Last Filed: 07/09/24 12:51> Vital Signs Vital Signs: Vital Signs Temperature 97.6 F 07/08/24 16:50 Pulse Rate 116 H 07/08/24 16:50 Respiratory Rate 18 07/08/24 16:50 Blood Pressure 155/86 H 07/08/24 16:50 Pulse Oximetry 100 07/08/24 16:50 Oxygen Delivery Room Air 07/08/24 16:50 Temperature 98.1 F 07/08/24 20:15 Pulse Rate 93 07/08/24 20:15 Respiratory Rate 15 07/08/24 20:15 Blood Pressure 143/87 H 07/08/24 20:15 Pulse Oximetry 99 07/08/24 20:15 Oxygen Delivery Room Air 07/08/24 16:50 <Harman Rebolledo MD - Last Filed: 07/09/24 12:51> Vital Signs Temperature 97.6 F 07/08/24 16:50 Pulse Rate 116 H 07/08/24 16:50 Respiratory Rate 18 07/08/24 16:50 Blood Pressure 155/86 H 07/08/24 16:50 Pulse Oximetry 100 07/08/24 16:50 Oxygen Delivery Room Air 07/08/24 16:50 Temperature 98.1 F 07/08/24 20:15 Pulse Rate 93 07/08/24 20:15 Respiratory Rate 15 07/08/24 20:15 Blood Pressure 143/87 H 07/08/24 20:15 Pulse Oximetry 99 07/08/24 20:15 Oxygen Delivery Room Air 07/08/24 16:50 <Wesley Higuera MD - Last Filed: 07/08/24 19:44> Lab Data Result diagrams: 07/08/24 17:16 07/08/24 17:16 <Harman Rebolledo MD - Last Filed: 07/09/24 12:51> Labs: Lab Results 07/08/24 Range/Units 17:16 WBC 5.7 (4.5-10.0) K/mm3 RBC 5.40 (4.6-6.20) M/mm3 Hgb 16.5 (14.0-18.0) g/dL Hct 48.2 (42.0-52.0) % MCV 89.3 (80-100) fl MCH 30.6 (26-34) pg MCHC 34.2 (32-36) g/dl RDW 12.1 (11.5-14.5) % Plt Count 204 (150-375) k/mm3 MPV 9.3 (7.4-10.4) fl Immature Gran % (Auto) 0.3 (0-0.5) % Neut % (Auto) 69.6 (45.5-73.1) % Lymph % (Auto) 19.9 (18.3-44.2) % Stanton % (Auto) 7.3 (2.6-8.5) % Eos % (Auto) 2.6 (0-4.4) % Baso % (Auto) 0.3 (0.2-1.2) % Lymph # (Auto) 1.14 (0.9-3.2) K/mm3 Stanton # (Auto) 0.4 (0.1-0.6) K/mm3 Eos # (Auto) 0.2 (0-0.3) K/mm3 Baso # (Auto) 0.0 (0.0-0.1) K/mm3 Abs Immat Gran (auto) 0.02 (0.00-0.031) K/mm3 Absolute Neuts (auto) 4.0 (1.3-6.7) K/mm3 Absolute Nucleated RBC 0.000 (0.0-0.012) K/mm3 Nucleated RBC % 0.0 (0.0-0.2) % Sodium 137 (137-145) mmol/L Potassium 4.0 (3.4-5.0) mmol/L Chloride 103 (98-107) mmol/L Carbon Dioxide 26 (22-30) mmol/L Anion Gap 8 (4-12) mmol/L BUN 11 (9-20) mg/dL Creatinine 1.01 (0.7-1.3) mg/dL Estim Creat Clear Calc Not Reportable Estimated GFR > 60 (59 - ) Glucose 105 (65-110) mg/dL Calcium 9.4 (8.4-10.2) mg/dL Total Bilirubin 2.6 H (0.2-1.3) mg/dL AST 37 (17-59) U/L ALT 29 (6-50) U/L Alkaline Phosphatase 54 (38-126) U/L Total Protein 8.0 (6.3-8.2) g/dL Albumin 4.8 (3.5-5.1) g/dL Urine Color Yellow (Yellow) Urine Appearance Clear (Clear) Urine pH 6.5 (5.0-9.0) Ur Specific Vega 1.003 (1.001-1.035) Urine Protein Negative (Negative) mg/dL Urine Glucose (UA) Negative (Negative) mg/dL Urine Ketones Negative (Negative) mg/dL Ur Blood (Man) Negative (Negative) Urine Nitrate Negative (Negative) Urine Bilirubin Negative (Negative) Urine Urobilinogen 0.2 (<2.0) mg/dL Leukocyte Esterase Rfl Negative (Negative) GHAZALA/UL <Harman Rebolledo MD - Last Filed: 07/09/24 12:51> Lab Results 07/08/24 Range/Units 17:16 WBC 5.7 (4.5-10.0) K/mm3 RBC 5.40 (4.6-6.20) M/mm3 Hgb 16.5 (14.0-18.0) g/dL Hct 48.2 (42.0-52.0) % MCV 89.3 (80-100) fl MCH 30.6 (26-34) pg MCHC 34.2 (32-36) g/dl RDW 12.1 (11.5-14.5) % Plt Count 204 (150-375) k/mm3 MPV 9.3 (7.4-10.4) fl Immature Gran % (Auto) 0.3 (0-0.5) % Neut % (Auto) 69.6 (45.5-73.1) % Lymph % (Auto) 19.9 (18.3-44.2) % Stanton % (Auto) 7.3 (2.6-8.5) % Eos % (Auto) 2.6 (0-4.4) % Baso % (Auto) 0.3 (0.2-1.2) % Lymph # (Auto) 1.14 (0.9-3.2) K/mm3 Stanton # (Auto) 0.4 (0.1-0.6) K/mm3 Eos # (Auto) 0.2 (0-0.3) K/mm3 Baso # (Auto) 0.0 (0.0-0.1) K/mm3 Abs Immat Gran (auto) 0.02 (0.00-0.031) K/mm3 Absolute Neuts (auto) 4.0 (1.3-6.7) K/mm3 Absolute Nucleated RBC 0.000 (0.0-0.012) K/mm3 Nucleated RBC % 0.0 (0.0-0.2) % Sodium 137 (137-145) mmol/L Potassium 4.0 (3.4-5.0) mmol/L Chloride 103 (98-107) mmol/L Carbon Dioxide 26 (22-30) mmol/L Anion Gap 8 (4-12) mmol/L BUN 11 (9-20) mg/dL Creatinine 1.01 (0.7-1.3) mg/dL Estim Creat Clear Calc Not Reportable Estimated GFR > 60 (59 - ) Glucose 105 (65-110) mg/dL Calcium 9.4 (8.4-10.2) mg/dL Total Bilirubin 2.6 H (0.2-1.3) mg/dL AST 37 (17-59) U/L ALT 29 (6-50) U/L Alkaline Phosphatase 54 (38-126) U/L Total Protein 8.0 (6.3-8.2) g/dL Albumin 4.8 (3.5-5.1) g/dL Urine Color Yellow (Yellow) Urine Appearance Clear (Clear) Urine pH 6.5 (5.0-9.0) Ur Specific Vega 1.003 (1.001-1.035) Urine Protein Negative (Negative) mg/dL Urine Glucose (UA) Negative (Negative) mg/dL Urine Ketones Negative (Negative) mg/dL Ur Blood (Man) Negative (Negative) Urine Nitrate Negative (Negative) Urine Bilirubin Negative (Negative) Urine Urobilinogen 0.2 (<2.0) mg/dL Leukocyte Esterase Rfl Negative (Negative) GHAZALA/UL <Wesley Higuera MD - Last Filed: 07/08/24 19:44> Discharge Plan Discharge Clinical Impression: Acute flank pain <Harman Rebolledo MD - Last Filed: 07/09/24 12:51> Patient Disposition: Home <Harman Rebolledo MD - Last Filed: 07/09/24 12:51> Condition: Stable <Harman Rebolledo MD - Last Filed: 07/09/24 12:51> Instructions: Antibiotic Form, Flank Pain (ED) <Harman Rebolledo MD - Last Filed: 07/09/24 12:51> Additional Instructions: He was seen emergency department for flank pain. Your workup here was reassuring we did not see any evidence of kidney stones or kidney infection. Please take Motrin Tylenol Robaxin for your pain. Please get up and stretch once in a while if you are having a long video game session. <Harman Rebolledo MD - Last Filed: 07/09/24 12:51> Patient Language: Japanese <Harman Rebolledo MD - Last Filed: 07/09/24 12:51> Prescriptions: New ibuprofen 800 mg tablet 800 mg PO TID PRN (Reason: pain) 7 Days Qty: 21 0RF acetaminophen 500 mg tablet 1,000 mg PO TID PRN (Reason: robert) 7 Days Qty: 42 0RF methocarbamol 750 mg tablet 1,500 mg PO TID Qty: 35 0RF No Action sertraline 50 mg tablet 50 mg PO . q.h.s. Qty: 30 11RF buspirone 5 mg tablet 5 mg PO BID Qty: 60 11RF amoxicillin 500 mg capsule 500 mg PO Q12H Qty: 14 0RF <Harman Rebolledo MD - Last Filed: 07/09/24 12:51> Follow-up/Referrals: Lala Childress, DEYA [Primary Care Provider] - <Harman Rebolledo MD - Last Filed: 07/09/24 12:51>
[2024-07-08] MEDS: ONDANSETRON INJ 4 MG/2 ML VIAL IV PUSH (17:17)
[2024-07-08 17:23] LABS: Basophils Percent Auto 0.3 % (0.2-1.2); Eosinophils Absolute Auto 0.2 K/mm3 (0-0.3); Eosinophils Percent Auto 2.6 % (0-4.4); Hematocrit 48.2 % (42.0-52.0); Hemoglobin 16.5 g/dL (14.0-18.0); Immature Granulocyte Absolute 0.02 K/mm3 (0.00-0.031); Immature Granulocyte Percent A 0.3 % (0-0.5); Lymphocytes Absolute Auto 1.14 K/mm3 (0.9-3.2); Lymphocytes Percent Auto 19.9 % (18.3-44.2); Mean Corpuscular HGB Conc 34.2 g/dl (32-36); Mean Corpuscular Hemoglobin 30.6 pg (26-34); Mean Corpuscular Volume 89.3 fl (80-100); Mean Platelet Volume 9.3 fl (7.4-10.4); Monocytes Absolute Auto 0.4 K/mm3 (0.1-0.6); Monocytes Percent Auto 7.3 % (2.6-8.5); Neutrophils Percent Auto 69.6 % (45.5-73.1); Platelet Count Result 204 k/mm3 (150-375); Red Cell Distribution Width 12.1 % (11.5-14.5); White Blood Count 5.7 K/mm3 (4.5-10.0)
[2024-07-08 17:24] LABS: Add Urine Microscopic? NO; Appearance Urine Clear (Clear); Bilirubin Urine Negative (Negative); Blood Urine Negative (Negative); Color Urine Yellow (Yellow); Glucose Urine UA Negative (Negative); Ketones Urine Negative (Negative); Leukocyte Esterase Ur Negative LEU/UL (Negative); Nitrate Urine Negative (Negative); Protein Urine Negative (Negative); Specific Grav Ur 1.003 (1.001-1.035); Urobilinogen Urine 0.2 mg/dL (<2.0); pH Urine 6.5 (5.0-9.0)
[2024-07-08 17:32] LABS: Alanine Aminotransferase 29 U/L (6-50); Albumin Level 4.8 g/dL (3.5-5.1); Alkaline Phosphatase 54 U/L (38-126); Anion Gap 8 mmol/L (4-12); Aspartate Amino Transferase 37 U/L (17-59); Bilirubin,Total 2.6 mg/dL (0.2-1.3); Blood Urea Nitrogen 11 mg/dL (9-20); Calcium 9.4 mg/dL (8.4-10.2); Carbon Dioxide 26 mmol/L (22-30); Chloride 103 mmol/L (98-107); Estimated Glomerular Filt Rate > 60; Glucose 105 mg/dL (65-110); Sodium 137 mmol/L (137-145)
[2024-07-08 20:01] VITALS: BP 143/87; PULSE 93; RESP 15; TEMP 36.7; O2SAT 99
[2024-07-08] MEDS: KETOROLAC 15 MG/ML VIAL (*BKC) IV PUSH (20:05)
[2024-07-08 20:15] VITALS: BP 143/87; PULSE 93; RESP 15; TEMP 36.7; O2SAT 99
== END 2024-07-08 20:17 | disposition home or self-care (01) ==
PROVIDERS: Emergency Provider Emergency Medicine; PCP Nurse Practitioner Family
DX: R10.9 Unspecified abdominal pain (principal); F41.9 Anxiety disorder, unspecified; F32.A Depression, unspecified; F17.290 Nicotine dependence, other tobacco product, uncomplicated; Z86.16 Personal history of COVID-19; Z79.899 Other long term (current) drug therapy
CPT/HCPCS: 36415; 74176; 80053; 81003; 85025; 96374; 96375; 99284; J1885; J2405

== ENCOUNTER 2024-11-05 21:11 | Emergency (ER) | payer OTHER, SELFPAY ==
--- OUTSIDE RECORDS SUMMARY | 2024-11-05 21:12 | XMS_ITS | Clinical Summary ---
Author Organization [employer] Address [address] [place] [address] Care Team Providers Care Senior Compensation Consultant Name Role Phone Unavailable Primary Care Provider Unavailabl e Source Comments [employer],non-owned Affiliates and Associated Physician Practices is amultiple site organization consisting of ambulatory clinics and hospital sitesin [place], [place], [place] and [place]. This disclosure is being madepursuant to the Care Everywhere program and may not contain all information available regarding this patient. Last updated 17.[employer] Allergies No known active allergies Medications * Be aware that medications may not be up to date on this document. Alwaysverify current medications with the patient. No known medications Active Problems Problem Noted Date Diagnosed Date Suicidal ideations 08/17/2017 Overview (10/27/2017): Admitted to [facility] for suicidal ideations with a plan. BMI (body mass index), pediatric, 95-99% for age 1012/05/2014 Immunizations Immunization Administration Dates Next Due DTaP [...] on file Legal Sex Male 6:53 AM FREIGHT TRAFFIC CONSULTANT Gender Identity Not on file Sexual Orientation Not on file Last Filed Vital Signs Vital Sign Reading Time Taken Comments Blood Pressure 128/80 04/26/2024 12:44 PM FREIGHT TRAFFIC CONSULTANT Pulse 102 04/26/2024 12:44 PM FREIGHT TRAFFIC CONSULTANT Temperature 36.6 C (97.8 F) 10/23/2015 1:13 PM CDT Respiratory Rate - - Oxygen Saturation 99% 04/26/2024 12:44 PM FREIGHT TRAFFIC CONSULTANT Inhaled Oxygen Concentration - - Weight 65.3 kg (144 lb) 04/26/2024 12:44 PM FREIGHT TRAFFIC CONSULTANT Height 175.3 cm (5' 9) 04/26/2024 12:44 PM FREIGHT TRAFFIC CONSULTANT Body Mass Index 21.27 04/26/2024 12:44 PM FREIGHT TRAFFIC CONSULTANT Plan of Treatment Health Maintenance Due Date Last Done Comments PNEUMOCOCCAL VACCINE (1 of 1 - PPSV23, PCV20, or PCV21) 2006 03/29/2001, 2000, 2000, Additional history exists HIV SCREENING 2015 HPV VACCINE (1 - Male 3-dose series) 2015 HEPATITIS C SCREENING 03/24/2018 DTAP/TDAP/TD VACCINES (7 - Td or Tdap) 06/28/2021 06/29/2011, 08/05/2005, 06/21/2001, Additional history exists DEPRESSION SCREENING 02/29/2024 COVID-19 VACCINE (1 - season) 2024 INFLUENZA VACCINE (#1) 2024 ZOSTER VACCINE (1 of 2) 2050 [...] Where can I go for more information? [place] [employer] ( ) www.aap.org HealthyChildren.org www.healthychildren.org U.S. Department of Health and Human Services www.hhs.gov Website and free downloadable galileo for smartphones: http://www.[employer]/ Use safety retraint in car Lifestyle On track( 016 11:21 AM FREIGHT TRAFFIC CONSULTANT) Samantha Baird RN Insurance * Guarantor: SCOTTY LICEA Account Type Relation to Patient Date of Phone Billing Address Personal/Family [address] [place] [address]
--- OUTSIDE RECORDS SUMMARY | 2024-11-05 21:12 | XMS_ITS | Patient Health Record ---
Author Organization [facility] [employer] [facility] Address [address] [facility] [address] [place] [address] Care Team Providers Care Senior Electrical Engineer Name Role Phone Lázaro Ledezma Unavailable [phone] Reason For Referral No Information Medications Medication SIG (Take, Route, Frequency, Duration) Notes Start Date End Date Status Gabapentin 100 MG Capsule Oral 04/18/2020 Active busPIRone HCl 15 MG Tablet Oral 04/18/2020 Active hydrOXYzine HCl 25 MG Tablet Oral 04/18/2020 Active Sertraline HCl 100 MG Tablet Oral 04/18/2020 Active Escitalopram Oxalate 5 MG Tablet Oral 04/18/2020 Active Escitalopram Oxalate 20 MG Tablet Oral 04/18/2020 Active Sertraline HCl 25 MG Tablet Oral 04/18/2020 Active Social History Social History Additional Details Category Social Info Options Details Migrated Social History Migrated Social History Tobacco Years: Never smoker 04/18/2020,Smoking Status: 6 04/18/2020 Plan Of Treatment No Information Insurance Providers Payer Name Payer Address Payer Phone Subscriber Number Group Number Insured Name Patient Relationship to Insured Coverage Start Date Coverage End Date [facility] [id number] [place] [id number] [phone] [id number] ELIZABETH BARR Child - Insured has Financial Responsibility
--- OUTSIDE RECORDS SUMMARY | 2024-11-05 21:12 | XMS_ITS | Clinical Summary ---
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
[2024-11-05 21:17] VITALS: BP 147/91; PULSE 135; RESP 20; TEMP 36.8; O2SAT 100
[2024-11-05 21:25] VITALS: BP 140/94; PULSE 108; RESP 14; TEMP 36.8; O2SAT 100
[2024-11-05 21:33] VITALS: BP 140/94; PULSE 75; RESP 12; O2SAT 100
[2024-11-05 21:37] VITALS: PULSE 73
--- OUTSIDE RECORDS SUMMARY | 2024-11-05 22:41 | XMS_ITS | Clinical Summary ---
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
--- OUTSIDE RECORDS SUMMARY | 2024-11-05 22:41 | XMS_ITS | Clinical Summary ---
Author Organization [email or web address] Address [address] [place] [address] Care Team Providers Care Cullet Crusher And Washer Name Role Phone Unavailable Primary Care Provider Unavailabl e Source Comments [employer],non-owned Affiliates and Associated Physician Practices is amultiple site organization consisting of ambulatory clinics and hospital sitesin [place], [place], [place] and [place]. This disclosure is being madepursuant to the Care Everywhere program and may not contain all information available regarding this patient. Last updated 17.[employer] Allergies No known active allergies Medications * Be aware that medications may not be up to date on this document. Alwaysverify current medications with the patient. No known medications Active Problems Problem Noted Date Diagnosed Date Suicidal ideations 08/17/2017 Overview (10/27/2017): Admitted to [facility] for suicidal ideations with a plan. [...] on file Legal Sex Male 6:53 AM BATTERY CONTAINER FINISHING HAND Gender Identity Not on file Sexual Orientation Not on file Last Filed Vital Signs Vital Sign Reading Time Taken Comments Blood Pressure 128/80 04/26/2024 12:44 PM BATTERY CONTAINER FINISHING HAND Pulse 102 04/26/2024 12:44 PM BATTERY CONTAINER FINISHING HAND Temperature 36.6 C (97.8 F) 10/23/2015 1:13 PM CDT Respiratory Rate - - Oxygen Saturation 99% 04/26/2024 12:44 PM BATTERY CONTAINER FINISHING HAND Inhaled Oxygen Concentration - - Weight 65.3 kg (144 lb) 04/26/2024 12:44 PM BATTERY CONTAINER FINISHING HAND Height 175.3 cm (5' 9) 04/26/2024 12:44 PM BATTERY CONTAINER FINISHING HAND Body Mass Index 21.27 04/26/2024 12:44 PM BATTERY CONTAINER FINISHING HAND Plan of Treatment Health Maintenance Due Date [...] Where can I go for more information? [place] [employer] ( ) www.aap.org HealthyChildren.org www.healthychildren.org U.S. Department of Health and Human Services www.hhs.gov Website and free downloadable galileo for smartphones: http://www.[employer]/ Use safety retraint in car Lifestyle On track( 016 11:21 AM BATTERY CONTAINER FINISHING HAND) Samantha Baird RN Insurance * Guarantor: SCOTTY LICEA Account Type Relation to Patient Date of Phone Billing Address Personal/Family [address] [place] [address]
[2024-11-05] MEDS: SODIUM CHLORIDE 0.9% IV 1,000 ML 999 ML IV CONT (22:46)
[2024-11-05] MEDS: FAMOTIDINE 20 MG/2 ML VIAL IV PUSH (22:47)
[2024-11-05] MEDS: ONDANSETRON INJ 4 MG/2 ML VIAL IV PUSH (22:48)
--- NOTE | 2024-11-05 23:20 | ED_ITS ---
HPI - General Adult General Chief complaint: Unspecified Stated complaint: smoked bad weed Time Seen by Provider: 11/05/24 22:30 Source: patient Mode of arrival: ambulatory Limitations: no limitations History of Present Illness HPI narrative: This is a 24 year old male that presents to the ER for nausea and vomiting. Reports he thinks he got some bad weed. Symptoms started immediately after smoking. Denies abdominal pain. Related Data Allergies Allergy/AdvReac Type Severity Reaction Status Date / Time No Known Allergies Allergy Verified 11/05/24 21:23 Review of Systems 2 Review of Systems: All systems reviewed & are unremarkable except as noted in HPI and below [facility] Past Medical History Medical History (Updated 11/05/24 @ 23:53 by Maria Ines Garcia PA-C) Flank pain High catecholamines (03/13/24) elevated epinephrine of 224 with normal less than 82 on 03/13/2023. Serum total bilirubin elevated bilirubin 5.3 03/13/2024. Microscopic hematuria trace amount of blood on urinalysis 03/13/2024. Elevated total protein (03/13/24) total protein slightly elevated at 9.0 on 03/13/2024. BMI 20.0-20.9, adult Early satiety Testicular pain Tachycardia EKG 03/13/2024 with sinus tachycardia with rate of 105 with possible left atrial enlargement. Nausea Amylase 69, lipase 54 on 03/13/2024. Panic attacks SOB (shortness of breath) Localized swelling, mass and lump, neck Rash Infected dental caries Insomnia Acute non-recurrent maxillary sinusitis COVID-19 (06/18/21) positive home COVID test 06/20/2021. Acute pain of left knee Acute thoracic back pain Acute bilateral low back pain without sciatica Nocturnal enuresis Exposure to COVID-19 virus Pharyngitis Weight loss, non-intentional Chronic depression Chronic anxiety TSH 0.582, free T4 1.42, T3 total 1.11 on 03/13/2024. Smoking Anxiety Weight loss Surgical History Surgical History History of circumcision Family History Family History Grandparent Diabetes mellitus Grandparent Diabetes mellitus Social History Social History Smoking status: Current every day smoker Tobacco type: e-cigarettes/vaping Second hand tobacco smoke exposure: No Alcohol intake: never Substance use: current Substance use type: marijuana Lack of Transportation: No Lack of Food: Never True Current Housing: I Have Housing Concerned About Future Housing: No Difficulty Paying Gas/Electric Bills: No Difficulty Paying for Meds: No Currently Unemployed: No Education: Trade/Vocational Certificate Difficulty w/ Childcare or Family Care: No Living arrangements: with family Occupation/Education: occupation Gender identity (if verbalized by the patient): Male Exam 2 Narrative: GENERAL: Well-appearing, well-nourished, and in no acute distress. HEAD: Normocephalic, atraumatic. EYES: EOMI. CHEST: Clear to auscultation. No respiratory distress. No wheezes rales or rhonchi HEART: Regular rate and rhythm. No murmur heard. Normal peripheral pulses. ABDOMEN: Soft, nontender, nondistended, normal active bowel sounds. EXTREMITIES: Normal range of motion. No edema. SKIN: Warm, dry, no rash. NEURO: No focal deficits. Alert and oriented x3. PSYCH: Normal mood and affect Course Vital Signs Vital signs: Vital Signs Temperature 98.2 F 11/05/24 21:17 Pulse Rate 135 H 11/05/24 21:17 Respiratory Rate 20 11/05/24 21:17 Blood Pressure 147/91 H 11/05/24 21:17 Pulse Oximetry 100 11/05/24 21:17 Oxygen Delivery Room Air 11/05/24 21:17 Temperature 98.2 F 11/05/24 21:25 Pulse Rate 73 11/05/24 21:37 Respiratory Rate 12 11/05/24 21:33 Blood Pressure 140/94 H 11/05/24 21:33 Pulse Oximetry 100 11/05/24 21:33 Oxygen Delivery Room Air 11/05/24 21:25 Medical Decision Making [facility] Narrative Medical decision making narrative: Patient presents the emergency department for nausea and vomiting after smoking weed. Tachycardic upon arrival, this normalized with IV fluids. Patient is afebrile and nontoxic appearing. CBC with leukocytosis to 16.2, likely due to vomiting. Metabolic panel without concerning findings. Patient given antiemetic with relief. He is to follow up with PCP Vital Signs Vital Signs: Vital Signs Temperature 98.2 F 11/05/24 21:17 Pulse Rate 135 H 11/05/24 21:17 Respiratory Rate 20 11/05/24 21:17 Blood Pressure 147/91 H 11/05/24 21:17 Pulse Oximetry 100 11/05/24 21:17 Oxygen Delivery Room Air 11/05/24 21:17 Temperature 98.2 F 11/05/24 21:25 Pulse Rate 73 11/05/24 21:37 Respiratory Rate 12 11/05/24 21:33 Blood Pressure 140/94 H 11/05/24 21:33 Pulse Oximetry 100 11/05/24 21:33 Oxygen Delivery Room Air 11/05/24 21:25 Lab Data Lab results reviewed: Yes I reviewed the patient's lab results. 11/05/24 23:15 11/05/24 23:15 Labs: Lab Results 11/05/24 Range/Units 23:15 WBC 16.2 H (4.5-10.0) K/mm3 RBC 5.40 (4.6-6.20) M/mm3 Hgb 16.7 (14.0-18.0) g/dL Hct 48.9 (42.0-52.0) % MCV 90.6 (80-100) fl MCH 30.9 (26-34) pg MCHC 34.2 (32-36) g/dl RDW 11.6 (11.5-14.5) % Plt Count 272 (150-375) k/mm3 MPV 9.8 (7.4-10.4) fl Immature Gran % (Auto) 0.6 H (0-0.5) % Neut % (Auto) 83.7 H (45.5-73.1) % Lymph % (Auto) 8.5 L (18.3-44.2) % [place] % (Auto) 6.0 (2.6-8.5) % Eos % (Auto) 0.9 (0-4.4) % Baso % (Auto) 0.3 (0.2-1.2) % Lymph # (Auto) 1.38 (0.9-3.2) K/mm3 [place] # (Auto) 1.0 H (0.1-0.6) K/mm3 Eos # (Auto) 0.2 (0-0.3) K/mm3 Baso # (Auto) 0.1 (0.0-0.1) K/mm3 Abs Immat Gran (auto) 0.09 H (0.00-0.031) K/mm3 Absolute Neuts (auto) 13.6 H (1.3-6.7) K/mm3 Absolute Nucleated RBC 0.000 (0.0-0.012) K/mm3 Nucleated RBC % 0.0 (0.0-0.2) % Sodium 137 (137-145) mmol/L Potassium 3.6 (3.4-5.0) mmol/L Chloride 102 (98-107) mmol/L Carbon Dioxide 23 (22-30) mmol/L Anion Gap 12 (4-12) mmol/L BUN 7 L (9-20) mg/dL Creatinine 1.00 (0.7-1.3) mg/dL Estim Creat Clear Calc 101 ml/min Estimated GFR > 60 (59 - ) Glucose 104 (65-110) mg/dL Calcium 9.7 (8.4-10.2) mg/dL Total Bilirubin 1.8 H (0.2-1.3) mg/dL AST 22 (17-59) U/L ALT 16 (6-50) U/L Alkaline Phosphatase 55 (38-126) U/L Total Protein 8.5 H (6.3-8.2) g/dL Albumin 5.1 (3.5-5.1) g/dL Urine Color Yellow (Yellow) Urine Appearance Clear (Clear) Urine pH 7.0 (5.0-9.0) Ur Specific [place] 1.010 (1.001-1.035) Urine Protein Negative (Negative) mg/dL Urine Glucose (UA) Negative (Negative) mg/dL Urine Ketones Negative (Negative) mg/dL Ur Blood (Man) Negative (Negative) Urine Nitrate Negative (Negative) Urine Bilirubin Negative (Negative) Urine Urobilinogen 0.2 (<2.0) mg/dL Leukocyte Esterase Rfl Negative (Negative) GHAZALA/UL Urine Opiates Screen Negative (Negative) Urine Methadone Screen Negative (Negative) Ur Barbiturates Screen Negative (Negative) Ur Phencyclidine Scrn Negative (Negative) Ur Amphetamine Screen Negative (Negative) U Benzodiazepines Scrn Negative (Negative) Urine Cocaine Screen Negative (Negative) U Cannabinoids Screen Positive A (Negative) Critical Care Time Critical Care Time Critical Care Time: No Discharge Plan Discharge Clinical Impression: Marijuana abuse Patient Disposition: Home Condition: Improved Instructions: Acute Nausea and Vomiting (ED) Additional Instructions: Return to the ER if you experience fever, abdominal pain with nausea and vomiting, you are unable to keep down liquids or solids, or any other symptoms that are concerning to you Follow up with your primary care doctor Patient Language: Maldivian Prescriptions: No Action sertraline 50 mg tablet 50 mg PO . q.h.s. Qty: 30 11RF buspirone 5 mg tablet 5 mg PO BID Qty: 60 11RF ibuprofen 800 mg tablet 800 mg PO TID PRN (Reason: pain) 7 Days Qty: 21 0RF acetaminophen 500 mg tablet 1,000 mg PO TID PRN (Reason: robert) 7 Days Qty: 42 0RF methocarbamol 750 mg tablet 1,500 mg PO TID Qty: 35 0RF amoxicillin 500 mg capsule 500 mg PO Q12H Qty: 14 0RF tramadol 50 mg tablet 50 mg PO Q6H PRN (Reason: pain) Qty: 20 0RF Rx Instructions: take 50 mg tablet with acetaminophen 325 mg q.i.d. p.r.n. pain Follow-up/Referrals: Lala Childress NP [Primary Care Provider, Family Practice]
[2024-11-05 23:25] LABS: Hematocrit 48.9 % (42.0-52.0); Hemoglobin 16.7 g/dL (14.0-18.0); Immature Granulocyte Percent A 0.6 % (0-0.5); Lymphocytes Absolute Auto 1.38 K/mm3 (0.9-3.2); Mean Corpuscular HGB Conc 34.2 g/dl (32-36); Mean Corpuscular Hemoglobin 30.9 pg (26-34); Mean Corpuscular Volume 90.6 fl (80-100); Nucleated Red Blood Cells Absolute Auto 0.000 K/mm3 (0.0-0.012); Nucleated Red Blood Cells Perc 0.0 % (0.0-0.2); Platelet Count Result 272 k/mm3 (150-375); Red Blood Count 5.40 M/mm3 (4.6-6.20); White Blood Count 16.2 K/mm3 (4.5-10.0)
[2024-11-05 23:27] LABS: Add Urine Microscopic? NO; Appearance Urine Clear (Clear); Glucose Urine UA Negative (Negative); Leukocyte Esterase Ur Negative LEU/UL (Negative); Nitrate Urine Negative (Negative); Specific Grav Ur 1.010 (1.001-1.035)
[2024-11-05 23:38] LABS: Alanine Aminotransferase 16 U/L (6-50); Albumin Level 5.1 g/dL (3.5-5.1); Alkaline Phosphatase 55 U/L (38-126); Anion Gap 12 mmol/L (4-12); Aspartate Amino Transferase 22 U/L (17-59); Bilirubin,Total 1.8 mg/dL (0.2-1.3); Blood Urea Nitrogen 7 mg/dL (9-20); Calcium 9.7 mg/dL (8.4-10.2); Carbon Dioxide 23 mmol/L (22-30); Chloride 102 mmol/L (98-107); Estimated CRCL calculation 101 ml/min; Estimated Glomerular Filt Rate > 60; Glucose 104 mg/dL (65-110); Potassium 3.6 mmol/L (3.4-5.0); Sodium 137 mmol/L (137-145); Total Protein 8.5 g/dL (6.3-8.2)
[2024-11-05 23:48] LABS: Cannabinoid Screen Urine Positive (Negative)
[2024-11-06 00:12] VITALS: BP 127/80; PULSE 69; RESP 12; O2SAT 98
== END 2024-11-06 00:14 | disposition home or self-care (01) ==
PROVIDERS: Emergency Provider Physician Assistant; PCP Nurse Practitioner Family
DX: F12.10 Cannabis abuse, uncomplicated (principal); F41.9 Anxiety disorder, unspecified; F32.A Depression, unspecified; F17.290 Nicotine dependence, other tobacco product, uncomplicated; Z86.16 Personal history of COVID-19; Z79.899 Other long term (current) drug therapy
CPT/HCPCS: 36415; 80053; 80307; 81003; 85025; 96361; 96374; 96375; 99284; J2405; J7030